=== PATIENT | female | born 1985 | race Caucasian/White ===

== ENCOUNTER 2016-11-21 13:15 | Inpatient (IN) | payer OTHER ==
[2016-11-21 15:08] LABS: BASOPHIL 0.3 % (0-2.0); EOSINOPHIL 0.7 % (0-4.5); MCH 29.4 pg (25.7-33.7); MCHC 33.7 g/dl (32.0-36.0); MEAN CELL VOLUME 87.4 fl (80-96); MEAN PLT VOLUME 8.8 fl (7.5-11.1); PLATELET COUNT 268 K/MM3 (134-434); RDW 13.7 % (11.6-15.6); WHITE BLOOD COUNT 14.3 K/mm3 (4.0-10.0)
[2016-11-21 15:26] LABS: URINE APPEARANCE CLOUDY; URINE BILIRUBIN NEGATIVE (NEGATIVE); URINE BLOOD NEGATIVE (NEGATIVE); URINE COLOR YELLOW; URINE GLUCOSE (UA) NEGATIVE (NEGATIVE); URINE KETONE NEGATIVE (NEGATIVE); URINE NITRITE NEGATIVE (NEGATIVE); URINE UROBILINOGEN NEGATIVE mg/dL (0.2-1.0)
[2016-11-21 15:29] LABS: URINE PROTEIN 1+ (NEGATIVE)
[2016-11-21 15:32] LABS: ALBUMIN 2.5 g/dl (3.4-5.0); ANION GAP 10 (8-16); CALCIUM 8.1 mg/dL (8.5-10.1); CO2 22 mmol/L (21-32); CREATININE 0.6 mg/dL (0.55-1.02); GLUCOSE,RANDOM 94 mg/dL (74-106); SGOT/AST 7 U/L (15-37); SGPT/ALT 14 U/L (12-78); URIC ACID 4.9 mg/dL (2.6-7.2)
[2016-11-21 15:35] LABS: ALK PHOS 214 U/L (45-117); BILIRUBIN,TOTAL 0.2 mg/dL (0.2-1.0); TOT PROT 6.3 g/dl (6.4-8.2)
[2016-11-21 16:01] VITALS: BMI 38.2
[2016-11-21 16:22] LABS: URINE BACTERIA MANY /hpf (NONE SEEN); URINE MUCUS RARE; URINE RBC 2 /hpf (0-3); URINE WBC 9 /hpf (3-5)
[2016-11-21] MEDS: DEXTROSE 5%-LACTATED RINGERS 1,000 ML IV SCH (18:00)
[2016-11-21 18:07] LABS: INR 0.93 (0.82-1.09); PROTHROMBIN TIME (PATIENT) 10.5 SEC (9.98-11.88)
[2016-11-21 18:10] LABS: ACTIVATED PTT 27.6 SECONDS (26.9-34.4)
[2016-11-21 21:12] LABS: URINE LEUK ESTERASE Negative (NEGATIVE)
[2016-11-21] MEDS ORDERED: DINOPROSTONE 10 MG VAGINAL SUPPOSITORY VG ONE (21:30)
--- NOTE | 2016-11-21 21:37 | HP ---
Past Medical History - Admission Chief Complaint: induced hypertension History of Present Illness: 31 yo @ 41+ weeks gestation, with induced hypertension admitted for induction of labor. History Source: Patient Limitations to Obtaining History: No Limitations - Past Medical History ...: 3 ...Para: 0 ...Term: 0 ...: 0 ...Spon : 2 ...Induced : 0 ...Multiple Gestation: 0 ...LMP: 02/07/16 ... Weeks Gestation by Dates: 41.1 ...EDC by Dates: 11/13/16 ...EDC by Sono: 11/19/16 - Past Surgical History Past Surgical History: Yes: None Hx Myomectomy: No Hx Transabdominal Cerclage: No - Smoking History Smoking history: Never smoked Have you smoked in the past 12 months: No - Alcohol/Substance Use Hx Alcohol Use: No History of Substance Use: reports: None - Social History History of Recent Travel: No Home Medications - Allergies Allergies/Adverse Reactions: Allergies Allergy/AdvReac Type Severity Reaction Status Date / Time No Known Allergies Allergy Verified 11/21/16 14:04 - Home Medications Home Medications: Ambulatory Orders One Daily Tablet 1 tab PO DAILY 11/21/16 Family Disease History - Family Disease History Family History: Unremarkable Review of Systems - Review of Systems Constitutional: reports: No Symptoms Eyes: reports: No Symptoms HENT: reports: No Symptoms Neck: reports: No Symptoms Cardiovascular: reports: No Symptoms Respiratory: reports: No Symptoms Gastrointestinal: reports: No Symptoms Genitourinary: reports: Pain Breasts: reports: No Symptoms Reported Musculoskeletal: reports: No Symptoms Integumentary: reports: No Symptoms Neurological: reports: No Symptoms Endocrine: reports: No Symptoms Hematology/Lymphatic: reports: No Symptoms Psychiatric: reports: No Symptoms Pain Intensity: 3 Physical Exam - Maternity Vital Signs: Vital Signs Temperature 97.9 F 11/21/16 18:00 Pulse Rate 87 11/21/16 20:00 Respiratory Rate 20 11/21/16 20:00 Blood Pressure 119/78 11/21/16 20:00 O2 Sat by Pulse Oximetry (%) Constitutional: Yes: Well Nourished Eyes: Yes: Conjunctiva Clear Neck: Yes: Supple Cardiovascular: Yes: Regular Rate and Rhythm Lungs: Clear to auscultation - Abdominal Exam/OB Number of Fetuses: Single Presentation: Vertex - Vaginal Exam/OB Presentation: Vertex/Position Station: -3 - Physical Exam ...Motor Strength: WNL Psychiatric: Yes: Alert, Oriented - Labs Lab Results: CBC, BMP 11/21/16 14:36 11/21/16 14:36 Problem List - Problems (1) PIH ( induced hypertension), antepartum Code(s): O13.9 - GESTATIONAL HTN W/O SIGNIFICANT PROTEINURIA, UNSP TRIMESTER Assessment/Plan induced hypertension Cervidil induction Re-evaluate in 12 hours or before if indicated
[2016-11-22] MEDS ORDERED: BUTORPHANOL TARTRATE 1 MG/ML VIAL IVPUSH PRN (03:11)
[2016-11-22] MEDS ORDERED: PROMETHAZINE HCL 25 MG/1 ML VIAL IVPUSH PRN (03:12)
[2016-11-22] MEDS ORDERED: BUTORPHANOL TARTRATE 1 MG/ML VIAL IVPB ONE (03:30)
[2016-11-22] MEDS ORDERED: PROMETHAZINE HCL 25 MG/1 ML VIAL IVPB ONE (03:30)
[2016-11-22] MEDS ORDERED: ELECTROLYTE-148 SOLN 1,000 ML IV SCH ×2 (07:30→08:31)
--- NOTE | 2016-11-22 08:43 | PN ---
Progress Note (short form) - Note Progress Note: cx 6 cm. 80 vx -2 mi, fhr cat 1, arom ,light mec stain, has epidural ,
[2016-11-22] MEDS ORDERED: FENTANYL/BUPIVACAINE/NS/PF - PCEA - 50 ML DISP.SYRIN EP SCH (08:45)
[2016-11-22] MEDS ORDERED: OXYTOCIN 15 UNITS/ LR 250 ML 250 ML IVPB SCH (09:30)
--- NOTE | 2016-11-22 09:35 | PN ---
Progress Note (short form) - Note Progress Note: contraction irregular , cx 6 cm, 80 vx -2 mr. light mec , heart accel with scalp stimulation , fhr cat 1, will start low dose pitocin and revaluate
--- NOTE | 2016-11-22 10:16 | PN ---
Progress Note (short form) - Note Progress Note: cx 7 cm 80 vx -2, fhr cat 2 with decreased variability , improved after scalp stimulation
--- NOTE | 2016-11-22 13:29 | PN ---
Progress Note (short form) - Note Progress Note: cx 9 cm 100 vx -1 mr, good accelration with scalp stimulation, fhr cat 1
[2016-11-22] MEDS ORDERED: GENTAMICIN 80 MG PREMIXED IVPB 100 ML IVPB ONE (16:30)
[2016-11-22] MEDS ORDERED: AMPICILLIN - 2 GM in SODIUM CHLORIDE 100 ML IVPB ONE (16:30)
[2016-11-22 17:02] LABS: ARTERIAL BLD GAS O2 SATURATION 78.5 % (90-98.9); ARTERIAL BLOOD GAS BASE EXCESS -5.6 meq/l (-2-2); ARTERIAL BLOOD GAS HCO3 18.4 meq/L (22-26); ARTERIAL BLOOD GAS PO2 39.3 mmHg (80-100); ARTERIAL BLOOD GAS pH 7.36 (7.35-7.45)
[2016-11-22 17:06] LABS: PT. ON O2? YES
[2016-11-22 17:07] LABS: TYPE OF O2 SIMPLE MASK
[2016-11-22 17:09] LABS: ON ANTICOAG? CORD BLOOD; PT'S TEMP ARETRIAL SAMPLE
[2016-11-22 17:11] LABS: VENOUS BLOOD GAS HCO3 18.9 meq/L (19-25); VENOUS PH 7.36 (7.32-7.42)
[2016-11-22] MEDS ORDERED: METHYLERGONOVINE MALEATE 0.2 MG/1 ML AMP IM PRN (17:57)
[2016-11-22] MEDS ORDERED: oxyCODONE HCL 5 MG TABLET PO PRN (17:57)
[2016-11-22] MEDS ORDERED: BISACODYL 10 MG SUPP.RECT RC PRN (17:57)
[2016-11-22] MEDS ORDERED: WITCH HAZEL 50% (TUCKS) 40 PAD/JAR PAD TP PRN (17:57)
[2016-11-22] MEDS ORDERED: BENZOCAINE 28 GM HEMORRHOIDAL OINTMENT TP PRN (17:57)
[2016-11-22] MEDS ORDERED: BENZOCAINE 20% 57 GM BOTTLE TP PRN (17:57)
[2016-11-22] MEDS ORDERED: D5W-LR W/ 20 UNITS OXYTOCIN 1,000 ML IV SCH (18:00)
--- NOTE | 2016-11-22 18:21 | PN ---
Progress Note (short form) - Note Progress Note: 220 pm cx 9 cm. . 100 vx -1. mr, fh cat 1 ,no tachycardia , temp most likly seconadry to dehydration and possible epidural anesthesia, doubt chorio, but will cover with antibiotics in case, GBS negative,
[2016-11-22] MEDS: FERROUS SO4 325 MG TABLET (FP) PO SCH (21:30)
[2016-11-22] MEDS: IBUPROFEN 600 MG TABLET (FP) PO PRN (22:20)
[2016-11-22] MEDS: ACETAMINOPHEN 325 MG TABLET (FP) PO PRN (22:20)
[2016-11-23] MEDS: DEXTROSE 5%-LACTATED RINGERS 1,000 ML IV SCH (06:12)
--- NOTE | 2016-11-23 08:13 | PN ---
Post Progress Note Type of Delivery: Vital Signs: Vital Signs Temperature 99.0 F 11/23/16 05:17 Pulse Rate 104 H 11/23/16 05:17 Respiratory Rate 20 11/23/16 05:17 Blood Pressure 128/85 11/23/16 05:17 O2 Sat by Pulse Oximetry (%) 100 11/22/16 16:15 Breast Exam: Yes: Soft Uterus: Yes: Fundus Firm Abdomen/GI: Yes: Abdomen soft Lochia: Yes: Rubra Lochia, amount: Small Extremities: Yes: Calves non-tender Perineum: Yes: Intact Activity: Ambulating - Labs Labs: CBC WBC 14.3 K/mm3 (4.0-10.0) H 11/21/16 14:36 RBC 4.17 M/mm3 (3.60-5.2) 11/21/16 14:36 Hgb 12.3 GM/dL (10.7-15.3) D 11/21/16 14:36 Hct 36.5 % (32.4-45.2) D 11/21/16 14:36 MCV 87.4 fl (80-96) 11/21/16 14:36 MCH 29.4 pg (25.7-33.7) 11/21/16 14:36 MCHC 33.7 g/dl (32.0-36.0) 11/21/16 14:36 RDW 13.7 % (11.6-15.6) 11/21/16 14:36 Plt Count 268 K/MM3 (134-434) D 11/21/16 14:36 MPV 8.8 fl (7.5-11.1) 11/21/16 14:36 Neutrophils % 80.0 % (42.8-82.8) D 11/21/16 14:36 Lymphocytes % 11.0 % (8-40) D 11/21/16 14:36 Monocytes % 8.0 % (3.8-10.2) 11/21/16 14:36 Eosinophils % 0.7 % (0-4.5) 11/21/16 14:36 Basophils % 0.3 % (0-2.0) 11/21/16 14:36 Retic Count 1.42 % (0.5-1.5) 11/21/16 14:36 Haptoglobin 159 mg/dL (34-200) 11/21/16 14:36 Assessment/Plan oob reg diet check cbc
[2016-11-23 08:14] LABS: BASOPHIL 0.1 % (0-2.0); MCH 29.5 pg (25.7-33.7); MCHC 33.9 g/dl (32.0-36.0); MEAN CELL VOLUME 87.2 fl (80-96); MEAN PLT VOLUME 8.5 fl (7.5-11.1); NEUTROPHILS 90.3 % (42.8-82.8); PLATELET COUNT 189 K/MM3 (134-434); RDW 13.8 % (11.6-15.6)
[2016-11-23] MEDS: ACETAMINOPHEN 325 MG TABLET (FP) PO PRN ×2 (08:44→18:01)
[2016-11-23] MEDS: IBUPROFEN 600 MG TABLET (FP) PO PRN ×2 (08:45→18:02)
[2016-11-23] MEDS ORDERED: DEXTROSE 5%-LACTATED RINGERS 1,000 ML IV SCH (08:45)
[2016-11-23] MEDS ORDERED: DIPHTH,PERTUSS(ACELL),TET 0.5 ML DISP.SYRIN IM ONE (10:00)
[2016-11-23] MEDS ORDERED: FLU VACC QS2017-18 36MOS UP/PF 60 MCG/0.5 ML SYRINGE IM ONE (10:00)
[2016-11-23] MEDS: PRENATAL VITAMINS W/ FOLIC ACID TABLET (FP) PO SCH (10:28)
[2016-11-23] MEDS: FERROUS SO4 325 MG TABLET (FP) PO SCH ×2 (10:28→21:40)
[2016-11-23] MEDS: GENTAMICIN 80 MG PREMIXED IVPB 100 ML IVPB SCH ×2 (11:20→18:43)
[2016-11-23] MEDS: CEFAZOLIN 1 GM/D5W 50 ML IVPB SCH ×2 (12:31→17:45)
[2016-11-23 20:44] LABS: URINE APPEARANCE SLCLOUDY; URINE BILIRUBIN NEGATIVE (NEGATIVE); URINE BLOOD 3+ (NEGATIVE); URINE COLOR YELLOW; URINE GLUCOSE (UA) NEGATIVE (NEGATIVE); URINE KETONE NEGATIVE (NEGATIVE); URINE NITRITE NEGATIVE (NEGATIVE); URINE UROBILINOGEN NEGATIVE mg/dL (0.2-1.0)
[2016-11-23 20:53] LABS: URINE PROTEIN 1+ (NEGATIVE)
[2016-11-23 21:15] LABS: URINE MUCUS RARE; URINE RBC 12 /hpf (0-3); URINE WBC 65 /hpf (3-5)
[2016-11-23] MEDS ORDERED: SENNOSIDES/DOCUSATE COMBO (SENNA PLUS) TABLET (UD) PO PRN (22:00)
[2016-11-23 22:48] LABS: URINE LEUK ESTERASE 3+ (NEGATIVE)
[2016-11-24] MEDS: CEFAZOLIN 1 GM/D5W 50 ML IVPB SCH ×4 (01:25→18:33)
[2016-11-24] MEDS: GENTAMICIN 80 MG PREMIXED IVPB 100 ML IVPB SCH ×3 (02:07→18:34)
[2016-11-24 08:56] LABS: BASOPHIL 0.4 % (0-2.0); EOSINOPHIL 0.3 % (0-4.5); MCH 29.2 pg (25.7-33.7); MCHC 33.7 g/dl (32.0-36.0); MEAN CELL VOLUME 86.6 fl (80-96); MEAN PLT VOLUME 8.4 fl (7.5-11.1); NEUTROPHILS 80.6 % (42.8-82.8); PLATELET COUNT 209 K/MM3 (134-434); RDW 14.1 % (11.6-15.6); WHITE BLOOD COUNT 11.4 K/mm3 (4.0-10.0)
[2016-11-24] MEDS: FERROUS SO4 325 MG TABLET (FP) PO SCH (09:01)
[2016-11-24] MEDS: PRENATAL VITAMINS W/ FOLIC ACID TABLET (FP) PO SCH (09:01)
[2016-11-24 09:06] LABS: ANION GAP 7 (8-16); CALCIUM 7.8 mg/dL (8.5-10.1); CO2 25 mmol/L (21-32); GLUCOSE,RANDOM 79 mg/dL (74-106)
[2016-11-24 09:09] LABS: ALK PHOS 162 U/L (45-117); BILIRUBIN,TOTAL 0.3 mg/dL (0.2-1.0); CREATININE 0.4 mg/dL (0.55-1.02); SGOT/AST 43 U/L (15-37); SGPT/ALT 30 U/L (12-78); TOT PROT 5.4 g/dl (6.4-8.2)
[2016-11-24 13:09] VITALS: BP 136/91; PULSE 94; TEMP 98.6
--- NOTE | 2016-11-24 16:55 | DS ---
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 Signs: Vital Signs Temperature 98.6 F 11/24/16 13:00 Pulse Rate 94 H 11/24/16 13:00 Respiratory Rate 20 11/24/16 13:00 Blood Pressure 136/91 11/24/16 13:00 O2 Sat by Pulse Oximetry (%) 97 11/23/16 11:26 Constitutional: Yes: Well Nourished, No Distress, Calm Eyes: Yes: WNL, Conjunctiva Clear, EOM Intact HENT: Yes: WNL, Atraumatic, Normocephalic Neck: Yes: WNL, Supple, Trachea Midline Cardiovascular: Yes: WNL, Regular Rate and Rhythm Respiratory: Yes: WNL, Regular, CTA Bilaterally Gastrointestinal: Yes: WNL ...Rectal Exam: Yes: WNL Renal/: Yes: WNL ....Post : Yes: Uterus firm, Uterus non-tender, Slight lochia rubra Breast(s): Yes: WNL Musculoskeletal: Yes: WNL Extremities: Yes: WNL Edema: No Integumentary: Yes: WNL Neurological: Yes: WNL, Alert, Oriented ...Motor Strength: WNL Psychiatric: Yes: WNL, Alert, Oriented Labs: CBC, BMP 11/24/16 07:45 11/24/16 07:45 Delivery - Delivery Vaginal Delivery: Spontaneous (cx fully dilated , head on perinium ,head delivered , nasopharynx suctioned, ant and post, shoulder with no difficulty, live baby , , second degree laceration repaired with 2.0 chromic . 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
--- NOTE | 2016-11-24 17:05 | PN ---
Progress Note (short form) - Note Progress Note: spiked fever post , c/o of body ache, no dysuria on antibiotics blood culture negative so far urine culture negative abdomen soft, no cva . uterus firm , non tender lochia mild no odor, \perinium clean , intact CBC, BMP 11/24/16 07:45 11/24/16 07:45 Last Vital Signs Temp Pulse Resp BP Pulse Ox 98.6 F 94 H 20 136/91 97 11/24/16 13:00 11/24/16 13:00 11/24/16 13:00 11/24/16 13:00 11/23/16 11:26 impression afebrile , wbc coming down, cont iv antibiotics,pending urine culture if afebrile d/c home in am on po augmentim
== END 2016-11-24 18:30 | disposition home or self-care (01) | DRG 560 ==
LOC: JDEL 13:15 → JLDR 15:15 → J3W 11-22 19:30
PROVIDERS: ADMIT Obstetrics & Gynecology; ATTEND Obstetrics & Gynecology
PROC: 10E0XZZ Delivery of Products of Conception, External Approach (ICD-10-PCS; principal; 2016-11-22)
PROC: 0W8NXZZ Division of Female Perineum, External Approach (ICD-10-PCS; 2016-11-22)
PROC: 0HQ9XZZ Repair Perineum Skin, External Approach (ICD-10-PCS; 2016-11-22)
DX: O13.3 Gestational [pregnancy-induced] hypertension without significant proteinuria, third trimester (principal); O70.0 First degree perineal laceration during delivery; Z3A.41 41 weeks gestation of pregnancy; Z37.0 Single live birth
CPT/HCPCS: 36415; 36600; 59409; 80053; 81003; 81015; 82803; 82977; 83010; 84550; 85025; 85044; 85610; 85730; 86593; 86850; 86900; 86901; 87040; 87086; 90686; 90715; G0008

== ENCOUNTER 2018-03-26 03:41 | Emergency (ER) | payer OTHER ==
--- NOTE | 2018-03-26 04:08 | PDOC ---
History of Present Illness - General Chief Complaint: Palpitations Stated Complaint: PALPATATIONS Time Seen by Provider: 03/26/18 04:08 Past History - Past Medical History Allergies/Adverse Reactions: Allergies Allergy/AdvReac Type Severity Reaction Status Date / Time No Known Allergies Allergy Verified 11/21/16 14:04 Home Medications: Ambulatory Orders One Daily Tablet 1 tab PO DAILY 11/21/16 Amox-Tr/K Cl [Augmentin - 875Mg Tablet] 1 tab PO BID #10 tablet 11/24/16 Ibuprofen [Motrin -] 600 mg PO QID #28 tablet 11/24/16 Asthma: No Cancer: No Cardiac Disorders: Yes (h/o tachycardia tx with metatoprolol) Diabetes: No HTN: Yes Seizures: No Thyroid Disease: No - Immunization History Immunization Up to Date: Yes - Suicide/Smoking/Psychosocial Hx Smoking History: Never smoked Have you smoked in the past 12 months: No Hx Alcohol Use: No Drug/Substance Use Hx: No Substance Use Type: Alcohol Hx Substance Use Treatment: No
[2018-03-26] MEDS ORDERED: ADENOSINE 6 MG/2 ML VIAL IVPUSH ONE ×2 (04:10→04:54)
[2018-03-26 04:17] VITALS: TEMP 98; BMI 35.2
[2018-03-26] MEDS ORDERED: SODIUM CHLORIDE 0.9% 500 ML INFUS.BAG IV ONE (04:54)
[2018-03-26 05:00] VITALS: BP 141/82; PULSE 105
[2018-03-26 05:24] LABS: BASO % 0.4 % (0-2.0); EOS % 1.8 % (0-4.5); HEMATOCRIT 42.5 % (32.4-45.2); HEMOGLOBIN 14.9 GM/dL (10.7-15.3); LYMPH % 27.3 % (8-40); MCH 30.4 pg (25.7-33.7); MCHC 34.9 g/dl (32.0-36.0); MEAN PLT VOLUME 8.2 fl (7.5-11.1); MONO % 7.1 % (3.8-10.2); NEUT % 63.4 % (42.8-82.8); PLATELET COUNT 369 K/MM3 (134-434); RBC 4.89 M/mm3 (3.60-5.2); RDW 14.3 % (11.6-15.6); WHITE BLOOD COUNT 13.7 K/mm3 (4.0-10.0)
--- NOTE | 2018-03-26 05:32 | PDOC ---
History of Present Illness - General Chief Complaint: Palpitations Stated Complaint: PALPITATIONS Time Seen by Provider: 03/26/18 04:08 History Source: Patient, Family Exam Limitations: No Limitations - History of Present Illness Timing/Duration: momentarily Severity: moderate Past History - Travel Traveled outside of the country in the last 30 days: No Close contact w/someone who was outside of country & ill: No - Past Medical History Allergies/Adverse Reactions: Allergies Allergy/AdvReac Type Severity Reaction Status Date / Time No Known Allergies Allergy Verified 03/26/18 04:40 Home Medications: Ambulatory Orders Metoprolol Tartrate 25 mg PO DAILY #30 tablet 03/26/18 Asthma: No Cancer: No Cardiac Disorders: Yes (h/o tachycardia tx with metatoprolol svt) COPD: No Diabetes: No HTN: Yes Seizures: No Thyroid Disease: No - Immunization History Immunization Up to Date: Yes - Suicide/Smoking/Psychosocial Hx Smoking History: Never smoked Have you smoked in the past 12 months: No Information on smoking cessation initiated: No Hx Alcohol Use: No Drug/Substance Use Hx: No Substance Use Type: Alcohol Hx Substance Use Treatment: No Review of Systems - Review of Systems Constitutional: No: Symptoms Reported, See HPI, Chills, Diaphoresis, Fever, Loss of Appetite, Malaise, Night Sweats, Weakness, Weight Stable, Unintentional Wgt. Loss, Unexplained wgt Loss, Other HEENTM: No: Symptoms Reported, See HPI, Eye Pain, Blurred Vision, Tearing, Recent change in vision, Double Vision, Cataracts, Ear Pain, Ocular Prothesis, Ear Discharge, Nose Pain, Nose Congestion, Tinnitus, Nose Bleeding, Hearing Loss , Throat Pain, Throat Swelling, Mouth Pain, Dental Problems, Difficulty Swallowing, Mouth Swelling, Other Respiratory: No: Symptoms reported, See HPI, Cough, Orthopnea, Shortness of Breath, SOB with Exertion, SOB at Rest, Stridor, Wheezing, Productive cough, Hemoptysis, Other Cardiac (ROS): No: Symptoms Reported, See HPI, Chest Pain, Edema, Irregular Heart Rate, Lightheadedness, Palpitations, Syncope, Chest Tightness, Other ABD/GI: No: Symptoms Reported, See HPI, Abdominal Distended, Abd. Pain w/ defecation, Blood Streaked Bowels, Constipated, Diarrhea, Difficulty Swallowing , Nausea, Poor Appetite, Poor Fluid Intake, Rectal Bleeding, Vomiting, Indigestion, Abdominal cramping, Tarry Stools, Other : No: Symptoms Reported, See HPI, Burning, Dysuria, Discharge, Frequency, Flank Pain, Hematuria, Incontinence, Pain, Urgency, Testicular Mass, Testicular Swelling, Lesions, Testicular Pain, Other Musculoskeletal: No: Symptoms Reported, See HPI, Back Pain, Gout, Joint Pain, Joint Swelling, Muscle Pain, Muscle Weakness, Neck Pain, Joint Stiffness, Other Integumentary: No: Symptoms Reported, See HPI, Bruising, Change in Color, Change in Hair/Nails, Dryness, Erythema, Flushing, Lesions, Lumps, Pallor, Pruritus, Rash, Sweating, Other Neurological: No: Symptoms reported, See HPI, Headache, Numbness, Paresthesia, Pre-Existing Deficit, Seizure, Tingling, Tremors, Weakness, Unsteady Gait, Ataxia, Dizziness, Other Psychiatric: No: Anxiety, Depression, Frequent Crying, Stressors, Sleep Pattern Change, Emotional Problems, Mood Swings, Change in Appetite, Other Endocrine: No: Symptoms Reported, See HPI, Excessive Sweating, Flushing, Intolerance to Cold, Intolerance to Heat, Increased Hunger, Increased Thirst, Increased Urine, Unexplained Weight Gain, Unexplained Weight Loss, Change in Weight, Other Hematologic/Lymphatic: No: Symptoms Reported, See HPI, Anemia, Blood Clots, Easy Bleeding, Easy Bruising, Bleeding Diathesis, Lymph Node Abnormalities, Swollen Glands, Other *Physical Exam - Vital Signs Last Vital Signs Temp Pulse Resp BP Pulse Ox 98.0 F 105 H 18 141/82 99 03/26/18 03:50 03/26/18 05:00 03/26/18 05:00 03/26/18 05:00 03/26/18 05:00 - Physical Exam General Appearance: Yes: Nourished, Appropriately Dressed, Mild Distress HEENT: positive: EOMI, ANNETTE, Normal ENT Inspection, Normal Voice, Symmetrical, TMs Normal, Pharynx Normal Neck: positive: Trachea midline, Normal Thyroid, Supple Respiratory/Chest: positive: Lungs Clear, Normal Breath Sounds, Respiratory Distress. negative: Chest Tender Cardiovascular: positive: Regular Rhythm, Regular Rate, S1, S2 Musculoskeletal: positive: Normal Inspection. negative: CVA Tenderness Extremity: positive: Normal Capillary Refill, Normal Inspection, Normal Range of Motion, Tender, Pelvis Stable Integumentary: positive: Normal Color, Dry, Warm Neurologic: positive: miniature set constructor II-XII NML intact, Fully Oriented, Alert, Normal Mood/ Affect, Normal Response, Motor Strength 5/5 Moderate Sedation - Procedure Monitoring Vital Signs: Procedure Monitoring Vital Signs Temperature 98.0 F 03/26/18 03:50 Pulse Rate 105 H 03/26/18 05:00 Respiratory Rate 18 03/26/18 05:00 Blood Pressure 141/82 03/26/18 05:00 O2 Sat by Pulse Oximetry (%) 99 03/26/18 05:00 ED Treatment Course - LABORATORY CBC & Chemistry Diagram: 03/26/18 04:40 03/26/18 04:41 - Medications Given in the ED: ED Medications Discontinued Medications Generic Name Dose Route Start Last Admin Trade Name Sage PRN Reason Stop Dose Admin Adenosine 6 mg 03/26/18 04:54 03/26/18 04:15 Adenocard - IVPUSH 03/26/18 04:55 6 mg ONCE ONE Administration Sodium Chloride 1,000 ml 03/26/18 04:54 03/26/18 04:15 Normal Saline - IV 03/26/18 04:55 1,000 ml ONCE ONE Administration Medical Decision Making - Medical Decision Making 03/26/18 05:51 WBC normal; chem pending 03/26/18 06:04 Pt came in SVT; suddenly woke up with a heart rate 03/26/18 07:34 HR is back to baseline. She will be discharged with metoprolol and cardio follow up as well as EP f/u *DC/Admit/Observation/Transfer Diagnosis at time of Disposition: SVT (supraventricular tachycardia) - Discharge Dispostion Disposition: HOME Condition at time of disposition: Improved Decision to Admit order: No - Prescriptions Prescriptions: Metoprolol Tartrate 25 mg PO DAILY #30 tablet - Referrals Referrals: Eduardo Levine MD [Staff Physician] - - Patient Instructions Printed Discharge Instructions: Paroxysmal Supraventricular Tachycardia - Post Discharge Activity
[2018-03-26 06:12] LABS: ALBUMIN 3.8 g/dl (3.4-5.0); ALK PHOS 117 U/L (45-117); ANION GAP 11 MMOL/L (8-16); BILIRUBIN,TOTAL 0.2 mg/dL (0.2-1); BLOOD UREA NITROGEN 13 mg/dL (7-18); CHLORIDE 107 mmol/L (98-107); CO2 21 mmol/L (21-32); CREATININE 0.7 mg/dL (0.55-1.3); GLUCOSE,RANDOM 122 mg/dL (74-106); POTASSIUM 3.9 mmol/L (3.5-5.1); SGOT/AST 17 U/L (15-37); SGPT/ALT 23 U/L (13-61); SODIUM 139 mmol/L (136-145); TOT PROT 7.5 g/dl (6.4-8.2)
[2018-03-26] MEDS ORDERED: metoPROLOL SUCCINATE 25 MG TAB.SR.24H (FP) PO ONE (06:29)
--- NOTE | 2018-03-26 10:28 | EKG ---
Test Reason : Blood Pressure : / mmHG Vent. Rate : 204 BPM Atrial Rate : 202 BPM P-R Int : 000 ms QRS Dur : 084 ms QT Int : 222 ms P-R-T Axes : 000 085 -18 degrees QTc Int : 409 ms SUPRAVENTRICULAR TACHYCARDIA MARKED ST ABNORMALITY, POSSIBLE INFERIOR SUBENDOCARDIAL INJURY ABNORMAL ECG WHEN COMPARED WITH ECG OF 28-DEC-2014 18:52, VENT. RATE HAS INCREASED NOTE RHYTHM CHANGE T WAVE INVERSION NOW EVIDENT IN INFERIOR LEADS Confirmed by DARREL SAVAGE MD ([id number]) on 03/26/2018 10:28:35 AM Referred By: Confirmed By:DARREL SAVAGE MD
--- NOTE | 2018-03-29 11:57 | EKG ---
Test Reason : Blood Pressure : / mmHG Vent. Rate : 103 BPM Atrial Rate : 103 BPM P-R Int : 136 ms QRS Dur : 074 ms QT Int : 314 ms P-R-T Axes : 058 083 044 degrees QTc Int : 411 ms SINUS TACHYCARDIA OTHERWISE NORMAL ECG WHEN COMPARED WITH ECG OF 26-MAR-2018 04:04, VENT. RATE HAS DECREASED BY 101 BPM T WAVE INVERSION NO LONGER EVIDENT IN INFERIOR LEADS Confirmed by MAYKEL FLORENCE, VALDEMAR ([id number]) on 03/29/2018 11:57:32 AM Referred By: Confirmed By:VALDEMAR BRAR MD
== END 2018-03-26 07:41 | disposition home or self-care (01) ==
LOC: JER 03:41
PROC: 3E033GC Introduction of Other Therapeutic Substance into Peripheral Vein, Percutaneous Approach (ICD-10-PCS; principal; 2018-03-26)
DX: I47.1 Supraventricular tachycardia (principal)
CPT/HCPCS: 36415; 80053; 82550; 84484; 84703; 85025; 93005; 93010; 96374; 99285-25

== ENCOUNTER 2018-07-04 13:33 | Inpatient (IN) | payer OTHER ==
[2018-07-04] MEDS ORDERED: SODIUM CHLORIDE 1,000 ML IV STA ×2 (13:40→16:45)
--- NOTE | 2018-07-04 13:40 | PDOC ---
Rapid Medical Evaluation Time Seen by Provider: 07/04/18 13:39 Medical Evaluation: Allergies Allergy/AdvReac Type Severity Reaction Status Date / Time No Known Allergies Allergy Verified 03/26/18 04:40 07/04/18 13:39 I have performed a brief in-person evaluation of this patient. The patient presents with a chief complaint of: right sided abdominal pain. LMP- 06/01 Pertinent physical exam findings: RLQ tenderness I have ordered the following: urine, labs The patient will proceed to the ED for further evaluation. Discharge Disposition - Diagnosis RLQ abdominal pain - Referrals - Patient Instructions - Post Discharge Activity
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
[2018-07-04 14:19] LABS: BASO % 0.2 % (0-2.0); EOS % 0.4 % (0-4.5); HEMATOCRIT 40.5 % (32.4-45.2); HEMOGLOBIN 13.7 GM/dL (10.7-15.3); LYMPH % 7.9 % (8-40); MCH 29.1 pg (25.7-33.7); MCHC 33.8 g/dl (32.0-36.0); MEAN CELL VOLUME 86.2 fl (80-96); MEAN PLT VOLUME 7.8 fl (7.5-11.1); MONO % 4.3 % (3.8-10.2); NEUT % 87.2 % (42.8-82.8); PLATELET COUNT 374 K/MM3 (134-434); RDW 13.7 % (11.6-15.6); WHITE BLOOD COUNT 16.9 K/mm3 (4.0-10.0)
[2018-07-04] MEDS ORDERED: ACETAMINOPHEN 1000 MG/100 ML VIAL (NON FORMULARY) IVPB ONE (14:24)
[2018-07-04 14:31] LABS: ALBUMIN 3.9 g/dl (3.4-5.0); BILIRUBIN,TOTAL 0.5 mg/dL (0.2-1); CALCIUM 8.6 mg/dL (8.5-10.1); CREATININE 0.6 mg/dL (0.55-1.3); TOT PROT 7.6 g/dl (6.4-8.2)
[2018-07-04] MEDS ORDERED: KETOROLAC TROMETHAMINE 30 MG/1 ML VIAL IVPUSH ONE (14:37)
[2018-07-04] MEDS ORDERED: ACETAMINOPHEN INJECTION 100 ML IVPB ONE (14:45)
[2018-07-04] MEDS ORDERED: KETOROLAC TROMETHAMINE 15 MG/ML VIAL ONE (14:46)
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
[2018-07-04] MEDS ORDERED: PIPERACILLIN/TAZOB 4.5 GM 4.5 GM in DEXTROSE 5%-WATER 100 ML IVPB ONE (16:45)
[2018-07-04] MEDS ORDERED: PIPERACILLIN/TAZOB 4.5 GM 4.5 GM/100 ML BAG IVPB ONE (17:00)
[2018-07-04 17:37] LABS: PROTHROMBIN TIME (PATIENT) 11.8 SEC (9.7-13.0)
[2018-07-04 17:40] LABS: ACTIVATED PTT 38.4 SECONDS (25.2-36.5)
[2018-07-04] MEDS ORDERED: IBUPROFEN 800 MG/8 ML IJ IVPB ONE ×2 (18:27→18:32)
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
[2018-07-04] MEDS ORDERED: ACETAMINOPHEN 325 MG TABLET (FP) PO PRN (21:00)
[2018-07-04] MEDS: LACTATED RINGERS SOLUTION 1,000 ML/1,000 ML INFUS.BAG IV SCH (21:48)
[2018-07-04] MEDS ORDERED: DEXTROSE 5%-WATER 100 ML IVPB ONE (23:52)
[2018-07-04] MEDS ORDERED: PIPERACILLIN/TAZOBACTAM 4.5 GM VIAL IVPB ONE (23:52)
[2018-07-05] MEDS ORDERED: IBUPROFEN 600 MG TABLET (FP) PO PRN
[2018-07-05] MEDS: PIPERACILLIN/TAZOB 4.5 GM 4.5 GM in DEXTROSE 5%-WATER 100 ML IVPB SCH ×2 (00:28→10:59)
[2018-07-05] MEDS ORDERED: ADENOSINE 6 MG/2 ML VIAL IVPUSH ONE ×2 (01:09→01:39)
[2018-07-05] MEDS ORDERED: METOPROLOL TARTRATE 25 MG TABLET (FP) PO ONE (01:34)
--- NOTE | 2018-07-05 01:37 | RAPID ---
Physical Examination Vital Signs: Vital Signs Temperature 97.7 F 07/05/18 00:37 Pulse Rate 98 H 07/05/18 00:37 Respiratory Rate 20 07/05/18 00:37 Blood Pressure 146/88 07/05/18 00:37 O2 Sat by Pulse Oximetry (%) 99 07/04/18 22:08 Findings/Remarks: Rapid response called for tachycardia. Patients pulse found to be 203. EKG showed SVT. Patient transferred to tele. Adenosine 6 pushed and heart rate remained elevated. 12 mg of adenosine pushed and heart rate fell below 100. Patient then felt better. Lopressor 2 mg po ordered once. Patient to remain on tele with cardiac monitoring. Repeat EKG normal sinus rhythm. Patient SVT began while she was getting second dose of abx. #SVT - patient has a history of, has not been taking metoprolol since April - restart lopressor 25 mg BID - consult Cardio - will call Dr. Cope service about overnight event repeat EKG normal sinus, trop < .02 Labs: CBC, BMP 07/04/18 21:30 07/04/18 14:04
[2018-07-05 07:46] VITALS: BMI 38.5
[2018-07-05 08:22] LABS: HEMOGLOBIN 12.9 GM/dL (10.7-15.3); MCH 29.8 pg (25.7-33.7); MCHC 33.9 g/dl (32.0-36.0); MEAN CELL VOLUME 87.8 fl (80-96); MEAN PLT VOLUME 7.9 fl (7.5-11.1); PLATELET COUNT 320 K/MM3 (134-434); RBC 4.33 M/mm3 (3.60-5.2); WHITE BLOOD COUNT 9.7 K/mm3 (4.0-10.0)
[2018-07-05 08:52] LABS: CALCIUM 8.5 mg/dL (8.5-10.1); CREATININE 0.6 mg/dL (0.55-1.3); POTASSIUM 3.8 mmol/L (3.5-5.1)
[2018-07-05] MEDS ORDERED: METOPROLOL TARTRATE 25 MG TABLET (FP) PO SCH (10:00)
[2018-07-05] MEDS ORDERED: DEXTROSE 5%-WATER 100 ML IVPB ONE (10:53)
[2018-07-05] MEDS ORDERED: PIPERACILLIN/TAZOBACTAM 4.5 GM VIAL IVPB ONE (10:53)
--- NOTE | 2018-07-05 12:19 | CON.CARD ---
Consult Consult Specialty:: Cardiology Referred by:: Prisca Reason for Consultation:: SVT - History of Present Illness Chief Complaint: RLQ pain History of Present Illness: She is a 33yo [place] F with h/o SVT diagnosed 5 years ago, last episode in 03/27 , HTN peripartum who was admitted with RLQ pain, found with appendicitis. Awaiting surgery. Had episode of SVT @ 180 BPM accompanied by palpitations last night broke with adenosine. She was not seen by a staff radiologist after last admission due to lack of insurance. No chest pain, orthopnea, pnd or edema. Exercise tolerance is without limits. - History Source History Provided By: Patient, Medical Record Limitations to Obtaining History: No Limitations - Past Medical History Cardio/Vascular: Yes: HTN (peripartum only ("with the , not the " per pt)), Other (SVT in Mar 2018 - broke in ER with adenosine, has not f/u with cardio) ...LMP Comment: currently spotting, IUD inserted last month ...: No - Past Surgical History Past Surgical History: Yes: None - Alcohol/Substance Use Hx Alcohol Use: Yes (occasional) History of Substance Use: reports: None - Smoking History Smoking history: Never smoked Have you smoked in the past 12 months: No - Social History ADL: Independent History of Recent Travel: No Home Medications - Allergies Allergies/Adverse Reactions: Allergies Allergy/AdvReac Type Severity Reaction Status Date / Time No Known Allergies Allergy Verified 07/04/18 17:20 - Home Medications Home Medications: Ambulatory Orders NK [No Known Home Medication] 07/04/18 Family Disease History - Family Disease History Family Disease History: Other: Father (healthy), Mother (asthma, HTN) Vital Signs: Vital Signs Temperature 98 F 07/05/18 06:00 Pulse Rate 91 H 07/05/18 06:00 Respiratory Rate 18 07/05/18 06:00 Blood Pressure 111/64 07/05/18 06:00 O2 Sat by Pulse Oximetry (%) 99 07/05/18 07:00 Constitutional: Yes: No Distress, Calm Eyes: Yes: Conjunctiva Clear, EOM Intact HENT: Yes: Normocephalic Neck: Yes: Trachea Midline Respiratory: Yes: Regular, CTA Bilaterally Gastrointestinal: Yes: Normal Bowel Sounds, Tenderness (RLQ) Cardiovascular: Yes: Regular Rate and Rhythm JVD: No Carotid Bruit: No PMI: Non-Displaced Heart Sounds: Yes: S1, S2 Musculoskeletal: Yes: WNL Extremities: Yes: WNL Edema: No Peripheral Pulses WNL: Yes - Other Data Labs, Other Data: CBC, BMP 07/05/18 07:45 07/05/18 07:45 INR, PTT INR 1.00 (0.83-1.09) 07/04/18 16:49 Troponin, BNP 07/05/18 01:50 Troponin I < 0.02 Troponin, BNP 07/05/18 01:50 Troponin I < 0.02 Imaging - Results Chest X-ray: Report Reviewed EKG: Report Reviewed Assessment/Plan She is a 33yo [place] F with h/o SVT diagnosed 5 years ago, last episode in 03/27 , HTN peripartum who was admitted with RLQ pain, found with appendicitis. Awaiting surgery. Had episode of SVT @ 180 BPM accompanied by palpitations last night broke with adenosine. She was not seen by a staff radiologist after last admission due to lack of insurance. No chest pain, orthopnea, pnd or edema. SVT--typical AVNRT pattern. --continue metoprolol, increase as tolerated. --needs outpatient fu for ablation when dcd. Preop evaluation --she is at low risk of perioperative cardiac events. No further testing is needed.
--- NOTE | 2018-07-05 12:53 | EKG ---
Test Reason : Blood Pressure : / mmHG Vent. Rate : 096 BPM Atrial Rate : 096 BPM P-R Int : 144 ms QRS Dur : 076 ms QT Int : 368 ms P-R-T Axes : 042 060 018 degrees QTc Int : 464 ms NORMAL SINUS RHYTHM NORMAL ECG WHEN COMPARED WITH ECG OF 04-JUL-2018 17:15, NO SIGNIFICANT CHANGE WAS FOUND Confirmed by VALDEMAR BRAR MD ([id number]) on 07/05/2018 12:53:33 PM Referred By: Confirmed By:VALDEMAR BRAR MD
--- NOTE | 2018-07-05 14:05 | PN ---
Progress Note (short form) - Note Progress Note: Overnight events noted. Pt had episode of SVT, broke with adenosine, transferred to telemetry, started on metoprolol. Has now been seen by cardiology, discussed with Dr. Reid. For lap appendectomy today. Will likely end up going home tomorrow. Will convert admission to full from satellite. MD Abby Problem List - Problems (1) Acute appendicitis with localized peritonitis, without perforation, abscess , or gangrene Code(s): K35.30 - ACUTE APPENDICITIS WITH LOC PERITONITIS, W/O PERF OR GANGR (2) RLQ abdominal pain Code(s): R10.31 - RIGHT LOWER QUADRANT PAIN (3) Anorexia Code(s): R63.0 - ANOREXIA (4) Nausea alone Code(s): R11.0 - NAUSEA (5) H/O paroxysmal supraventricular tachycardia Code(s): Z86.79 - PERSONAL HISTORY OF OTHER DISEASES OF THE CIRCULATORY SYSTEM
[2018-07-05] MEDS ORDERED: ONDANSETRON 4 MG/2 ML VIAL IVPUSH PRN ×2 (14:49→17:24)
[2018-07-05] MEDS ORDERED: PROMETHAZINE HCL 25 MG/1 ML VIAL IVPUSH PRN (14:49)
[2018-07-05] MEDS: LACTATED RINGERS SOLUTION 1,000 ML/1,000 ML INFUS.BAG IV SCH (14:50)
[2018-07-05] MEDS ORDERED: BUPIVACAINE HCL/PF 0.5% (5MG/ML) 10 ML VIAL ONE (14:52)
[2018-07-05] MEDS ORDERED: BENZOIN TINCTURE SWABSTICK TP ONE (14:53)
[2018-07-05] MEDS ORDERED: ACETAMINOPHEN INJECTION 100 ML IVPB ONE (14:53)
[2018-07-05] MEDS ORDERED: LACTATED RINGERS SOLUTION 1,000 ML IV SCH ×2 (15:00→17:24)
[2018-07-05] MEDS ORDERED: SEVOFLURANE 250 ML BTL ONE (15:00)
[2018-07-05] MEDS ORDERED: fentaNYL CITRATE 250 MCG/5 ML VIAL ONE (15:07)
[2018-07-05] MEDS ORDERED: PROPOFOL 20 ML ONE ×6 (15:07)
[2018-07-05] MEDS ORDERED: SUCCINYLCHOLINE CHLORIDE 200 MG/10 ML VIAL ONE (15:08)
[2018-07-05] MEDS ORDERED: ROCURONIUM BROMIDE 50 MG/5 ML VIAL ONE (15:08)
[2018-07-05] MEDS ORDERED: LIDOCAINE HCL/PF 2% SDV 5ML VIAL ONE (15:09)
[2018-07-05] MEDS ORDERED: METOPROLOL TARTRATE 5 MG/5 ML VIAL ONE (15:39)
[2018-07-05] MEDS ORDERED: DEXAMETHASONE SOD PHOSPHATE 4 MG/1 ML VIAL ONE (15:39)
[2018-07-05] MEDS ORDERED: GLYCOPYRROLATE 0.2 MG/1 ML VIAL ONE (16:02)
[2018-07-05] MEDS ORDERED: NEOSTIGMINE METHYLSULFATE 0.5 MG/ML - 10 ML MDV ONE (16:02)
[2018-07-05] MEDS ORDERED: BUPIVACAINE HCL/PF 0.5% (5MG/ML) 10 ML VIAL IJ ONE ×2 (16:40)
--- NOTE | 2018-07-05 16:49 | EKG ---
Test Reason : Blood Pressure : / mmHG Vent. Rate : 083 BPM Atrial Rate : 083 BPM P-R Int : 144 ms QRS Dur : 074 ms QT Int : 386 ms P-R-T Axes : 041 064 028 degrees QTc Int : 453 ms NORMAL SINUS RHYTHM NORMAL ECG WHEN COMPARED WITH ECG OF 05-JUL-2018 02:14, NO SIGNIFICANT CHANGE WAS FOUND Confirmed by VALDEMAR BRAR MD ([id number]) on 07/05/2018 4:48:52 PM Referred By: Confirmed By:VALDEMAR BRAR MD
[2018-07-05] MEDS ORDERED: IBUPROFEN 800 MG/8 ML IJ IVPB ONE ×2 (17:07→17:10)
--- NOTE | 2018-07-05 17:10 | OP ---
Operative Note - Note: Operative Date: 07/05/18 Pre-Operative Diagnosis: acute appendicitis Operation: laparoscopic appendectomy Findings: distally enlarged/inflamed appendix; enlarged, fibroid uterus with thin, tubular structure (adhesion vs salpinx?) extending off uterus adhesed into small bowel mesentery near terminal ileum, also adhesed somewhat to mesoappendix - carefully from the appendiceal fat before transection; right ovary and Fallopian tube identified separately and intact after that - original structure believed to be possible adhesion, but NOT salpinx. Post-Operative Diagnosis: Same as Pre-op Surgeon: Otto Cope Anesthesiologist/VISUAL MERCHANDISING ASSOCIATE: Greta Bermeo Anesthesia: General, Local (10ml 0.5% marcaine) Specimens Removed: appendix to pathology Estimated Blood Loss (mls): 5 Drains & Tubes with Location: Vitale out at case end Drains, Volume Out (mls): 175 (UOP) Fluid Volume Replaced (mls): 1,000 (crystalloid) Operative Report Dictated: Yes
[2018-07-05] MEDS ORDERED: ACETAMINOPHEN 325 MG TABLET (FP) PO SCH (21:00)
[2018-07-05] MEDS: METOPROLOL TARTRATE 25 MG TABLET (FP) PO SCH (21:46)
[2018-07-05] MEDS: SULFAMETHOXAZOLE/TRIMETHOPRIM 800MG/160MG D.S. TABLET PO SCH (21:46)
[2018-07-05] MEDS: ACETAMINOPHEN 325 MG TABLET (FP) PO SCH (21:46)
[2018-07-05] MEDS ORDERED: SULFAMETHOXAZOLE/TRIMETHOPRIM 800MG/160MG D.S. TABLET PO SCH (22:00)
[2018-07-06] MEDS ORDERED: IBUPROFEN 600 MG TABLET (FP) PO SCH
[2018-07-06] MEDS: IBUPROFEN 600 MG TABLET (FP) PO SCH ×3 (00:30→14:32)
[2018-07-06] MEDS: ACETAMINOPHEN 325 MG TABLET (FP) PO SCH ×3 (03:04→15:33)
--- NOTE | 2018-07-06 08:25 | PN ---
Progress Note (short form) - Note Progress Note: Post op day#1.S/P Laproscopic appendectomy under GA uneventful.Patient stable.No any anesthesia related problem.Patient Dc from the anesthesia care.
[2018-07-06] MEDS: SULFAMETHOXAZOLE/TRIMETHOPRIM 800MG/160MG D.S. TABLET PO SCH (10:41)
[2018-07-06] MEDS: METOPROLOL TARTRATE 25 MG TABLET (FP) PO SCH (10:41)
--- NOTE | 2018-07-06 14:05 | PN ---
Progress Note, Physician Chief Complaint: no complaints tele neg History of Present Illness: She is a 33yo [place] F with h/o SVT diagnosed 5 years ago, last episode in 03/27 , HTN peripartum who was admitted with RLQ pain, found with appendicitis. Awaiting surgery. Had episode of SVT @ 180 BPM accompanied by palpitations last night broke with adenosine. She was not seen by a line patrolman after last admission due to lack of insurance. No chest pain, orthopnea, pnd or edema. Exercise tolerance is without limits. - Current Medication List Current Medications: Active Medications Acetaminophen (Tylenol -) 650 mg PO Q6H [facility] Last Admin: 07/06/18 10:41 Dose: 650 mg Lactated Ringer's (Lactated Ringers Solution) 1,000 mls @ 125 mls/hr IV ASDIR [facility] Last Admin: 07/05/18 17:50 Dose: 85 mls Ibuprofen (Motrin -) 600 mg PO Q6H [facility] Last Admin: 07/06/18 06:25 Dose: 600 mg Metoprolol Tartrate (Lopressor -) 25 mg PO BID [facility] Last Admin: 07/06/18 10:41 Dose: 25 mg Ondansetron HCl (Zofran Injection) 4 mg IVPUSH Q6H PRN PRN Reason: NAUSEA AND/OR VOMITING Trimethoprim/Sulfamethoxazole (Bactrim Ds -) 1 each PO BID [facility] Stop: 07/08/18 21:59 Last Admin: 07/06/18 10:41 Dose: 1 each - Objective Vital Signs: Vital Signs Temperature 97.8 F 07/06/18 06:00 Pulse Rate 78 07/06/18 10:00 Respiratory Rate 18 07/06/18 10:00 Blood Pressure 133/92 07/06/18 10:00 O2 Sat by Pulse Oximetry (%) 98 07/05/18 21:00 Constitutional: Yes: No Distress, Calm Eyes: Yes: Conjunctiva Clear, EOM Intact HENT: Yes: Atraumatic, Normocephalic Neck: Yes: Supple, Trachea Midline Cardiovascular: Yes: Regular Rate and Rhythm Respiratory: Yes: CTA Bilaterally Gastrointestinal: Yes: Normal Bowel Sounds, Soft Extremities: Yes: WNL Edema: No Peripheral Pulses WNL: Yes Labs: CBC, BMP 07/05/18 07:45 07/05/18 07:45 INR, PTT INR 1.00 (0.83-1.09) 07/04/18 16:49 Assessment/Plan She is a 33yo [place] F with h/o SVT diagnosed 5 years ago, last episode in 03/27 , HTN peripartum who was admitted with RLQ pain, found with appendicitis. Awaiting surgery. Had episode of SVT @ 180 BPM accompanied by palpitations last night broke with adenosine. She was not seen by a line patrolman after last admission due to lack of insurance. No chest pain, orthopnea, pnd or edema. SVT--typical AVNRT pattern. --continue metoprolol 25 bid. --needs outpatient fu for ablation when dcd. --stable cardiac status. no need for telemetry.
--- NOTE | 2018-07-06 14:26 | DS ---
Physical Examination Vital Signs: Vital Signs Temperature 97.8 F 07/06/18 06:00 Pulse Rate 78 07/06/18 10:00 Respiratory Rate 18 07/06/18 10:00 Blood Pressure 133/92 07/06/18 10:00 O2 Sat by Pulse Oximetry (%) 98 07/05/18 21:00 Findings/Remarks: Pt s/p lap appy. Seen ambulating in room, examined in bed. Mother present. Pt relates having had initial symptoms of UTI at admission - urine cx was positive for E. coli, started Bactrim postop last night. She reports no further dysuria, and that urinary symptoms have resolved. Tolerated diet, voiding, pain managed with alternating tylenol and ibuprofen. + flatus, no BM yet. No N/V. No CP/ palpitations, no further episodes of SVT noted. Constitutional: Yes: Well Nourished, No Distress, Calm Eyes: Yes: Conjunctiva Clear, EOM Intact HENT: Yes: Atraumatic, Normocephalic Cardiovascular: Yes: Regular Rate and Rhythm. No: Bradycardia, Tachycardia Respiratory: Yes: Regular, CTA Bilaterally Gastrointestinal: Yes: Normal Bowel Sounds, Soft, Abdomen, Obese, Tenderness ( mostly incisional, umbilical > LLQ). No: Tenderness, Rebound Renal/: Yes: Menses Present. No: Incontinence Extremities: No: Cool, Cyanosis Integumentary: Yes: Incision (x3 dressed), Tattoos. No: Jaundice, Rash Wound/Incision: Yes: Steri Strips (under dressings), Dressing Dry and Intact (x3 ). No: Dressing Removed Neurological: Yes: Alert, Oriented Labs: no new labs Discharge Summary Reason For Visit: APPENDICITIS Current Active Problems Acute appendicitis with localized peritonitis, without perforation, abscess, or gangrene (Acute) Anorexia (Acute) Paroxysmal supraventricular tachycardia (Acute) Nausea alone (Acute) RLQ abdominal pain (Acute) Urinary tract infection (Acute) Procedures: Principal: laparoscopic appendectomy Hospital Course: 33yo obese [place]dein[place] F with h/o paroxysmal supraventricular tachycardia (dx 5y ago , last episode 03/27), peripartum HTN, uterine fibroids, recent IUD placement, presented to ER with RLQ pain associated with anorexia and nausea but no vomiting. Initial wbc was 16.9, and CT showed acute appendicitis without abscess or rupture. Urine culture ultimately grew sensitive E. coli as well. TV US also showed known uterine fibroids, as did CT. She was started on IV fluids and Zosyn, admitted to surgery, and was to have laparoscopic appendectomy the next morning, but overnight had an episode of SVT requiring adenosine and transfer to telemetry. She had been on metoprolol (25mg XL daily) for a month after an ER visit with the same in March, but had been unable to f/u with cardiology for lack of insurance, and has no PMD. She was restarted on metoprolol, converted to sinus rhythm with the adenosine, and Dr. Reid from cardiology saw her preoperatively, which was delayed to afternoon. She had no further episodes of SVT during her stay. Surgery was uneventful, and postoperatively, Zosyn was stopped, and she was put on Bactrim for the UTI. She will complete a 3-day course by Rx on discharge. Metoprolol tartrate 25mg bid was continued. She has tolerated diet, is ambulating, voiding, and pain is controlled with alternating nonnarcotics. She will be discharged home with lifting restrictions for a month, and prescriptions for 2d of Bactrim and 1m of Metoprolol. She is referred to the [facility] for primary care, and to continue her metoprolol prescriptions (within 1-2 weeks), until her insurance status allows her to follow up with a obstetrician gynecologist. She would benefit from ablation in the future per cardiology. She will f/u with surgery in 2 weeks. Condition: Good - Instructions Diet, Activity, Other Instructions: Postoperative instructions: You had a laparoscopic appendectomy on 07/05/[address] Otto Cope of [facility]. Activity: Resume your usual activities gradually, but no heavy exertion or lifting more than 10-15 pounds for 1 month. Remove dressings 48 hours after surgery; sticky tapes underneath will fall off by themselves. You may shower daily starting then, just pat the incision areas dry. No bath or swimming until skin incisions have healed. Eat lightly at first, but advance to your usual diet as tolerated. Pain: For pain, you may use and alternate Tylenol (acetaminophen) 1-2 pills and/ or ibuprofen 200 mg (1-3 pills) every 6 hours each as needed; this means that you can take one OR the other at 3-hour intervals. Do not take more than 4000mg of acetaminophen in a day. Take medications as prescribed or indicated on the labeling. Follow-up: Call Dr. Cope's office at [phone] to make your postop appointment (Monday in approximately 2 weeks after surgery). Clinic is held in the [facility] on the first floor of [facility]. Call the office if you have: * increasing pain not responsive to pain medication * fever of 101F or higher * vomiting * unusual or increasing bleeding or drainage from wounds * increasing redness or swelling at wound sites Also, call for an appointment with the primary medical doctor/clinic you have been referred to within 1-2 weeks (Dr. Hope/[facility]). You were also diagnosed with a urinary tract infection on admission. Take all of the antibiotics (Bactrim) prescribed until they are gone. Yogurt or a probiotic daily are advised while you are using antibiotics to help maintain healthy gut braeden. You also have an abnormal heart rhythm that comes and goes called SVT. You have been prescribed Metoprolol tartrate 25mg twice daily for this. Take it regularly , and about 12 hours apart if possible. You will need to have it renewed every month from the medical clinic, until you can see a obstetrician gynecologist. Dr. Reid saw you in the hospital. You may not be able to get an appointment with a heart doctor until you have insurance. Go to the Emergency Room if you have: racing heart rate, palpitations, chest pain, significant weakness and/or dizziness, difficulty breathing or fainting. Referrals: Raul Reid MD [Staff Physician] - Jose Hope MD [Staff Physician] - (call for appointment within 1-2 weeks) Otto Cope MD [Staff Physician] - 2 Weeks (CALL for appointment) Disposition: HOME - Home Medications Comprehensive Discharge Medication List: Ambulatory Orders Acetaminophen [Tylenol .Regular Strength -] 650 mg PO Q6H tablet 07/06/18 Ibuprofen [Motrin -] 600 mg PO Q6H tablet 07/06/18 Metoprolol Tartrate [Lopressor -] 25 mg PO BID #60 tablet 07/06/18 Sulfamethoxazole/Trimethoprim [Bactrim DS -] 1 each PO BID #4 tablet 07/06/18
[2018-07-06 18:28] VITALS: BP 112/58; PULSE 77; TEMP 98.6
--- NOTE | 2018-07-07 09:58 | OP ---
DATE OF OPERATION: 07/05/2018 PREOPERATIVE DIAGNOSIS: Acute appendicitis. POSTOPERATIVE DIAGNOSIS: Acute appendicitis. PROCEDURE PERFORMED: Laparoscopic appendectomy. SURGEON: Otto Cope M.D. ANESTHESIA: General endotracheal and local, 10 mL of 0.5% Marcaine. ESTIMATED BLOOD LOSS: 5 mL. FLUIDS: 1000 mL of crystalloid. URINE OUTPUT: 175 mL. SPECIMEN: Appendix to Pathology. FINDINGS: Distally enlarged/inflamed appendix. Enlarged fibroid uterus with a thin tubular structure extending off of it, adherent to the mesoappendix and terminal ileal mesentery. This was carefully from the appendiceal fat before transection. The right ovary and fallopian tube were separately identified intact after that. The structure may have been an adhesion but was not the tube. DISPOSITION: Stable and extubated to PACU. INDICATIONS FOR PROCEDURE: The patient is a 33-year-old [facility] female with a history of paroxysmal supraventricular tachycardia, hypertension only around the time of her delivery of her last child and known uterine fibroids, who presented to the emergency room with right lower quadrant pain that began early in the morning and in retrospect was preceded by some periumbilical discomfort. This was associated with some anorexia, nausea but no vomiting, and about 2 weeks' worth of diarrhea preceding the pain. In the emergency room, she was afebrile, with a white count of 16,[address] , [address] CT showed acute appendicitis without perforation or abscess. Transvaginal ultrasound and CT also confirmed her uterine fibroids and an IUD in place, which was apparently inserted just a month prior. She is currently having menstrual spotting. She was tender in the right lower quadrant. She was admitted to Surgery and started on IV fluids and antibiotics. The risks, benefits and alternatives of laparoscopic, possible open appendectomy, including but not limited to bleeding, infection, injury to adjacent structures, intestinal leak or injury, intra-abdominal abscess, incisional hernia, need for further procedures, and were discussed with the patient, as well as alternatives, including antibiotics with deferred or no surgery. Risks of that included failure of nonoperative therapy, perforation, sepsis, recurrence and . The patient desired to proceed with an operation, and informed consent was signed for the same. Initially surgery was scheduled for first thing this morning, but overnight she had an episode of supraventricular tachycardia, which required adenosine administration, with conversion to sinus rhythm. She was transferred to Telemetry, and Cardiology did see her this morning, was able to stratify her risk as low for perioperative cardiac events, with no further intervention or testing required prior to surgery. She is now brought to the OR for this procedure. She was also started on metoprolol earlier this morning. OPERATIVE TECHNIQUE: The patient was brought to the operating room and laid supine on the operating table. Sequential compression devices were applied to bilateral lower extremities. As her 3rd dose of Zosyn had been given just a couple of hours prior and was at steady state, no additional antibiotics were given in the operating room. After induction and intubation by Anesthesia, a Vitale catheter was placed in the patient's bladder, which was removed at the end of the case. Her lower abdomen was prepped and draped in sterile fashion. A small supraumbilical incision was marked just above the patient's previous supraumbilical piercing site, as there was very little room in the lower abdomen from infraumbilical to pubic bone, so a supraumbilical midline incision was made above the level of the piercing site with a scalpel and carried into the subcutaneous tissues with electrocautery, until the abdominal wall fascia was identified, scored and elevated with Henry clamps. The peritoneum was entered bluntly with the tip of a clamp, and a fingertip was inserted to ensure entry into the abdominal cavity and the absence of any underlying adhesions. A stay suture of 0 Vicryl was placed in [id number] fashion in the fascia for later closure, and a Lula trocar was introduced directly into the abdominal cavity and secured in place with the balloon. The abdomen was insufflated with carbon dioxide, and the patient was placed in Trendelenburg position with the right side planed somewhat upward. Two additional 5-mm ports were placed under direct vision in the left lower quadrant and suprapubic areas, and the camera switched to the left lower quadrant port. Graspers were used through the other 2 ports and used to gently manipulate the small bowel medially and away from the pelvis and the right lower quadrant. The fibroid uterus was evident in the pelvis, coming up from it. The pelvis was inspected first to see if we could identify any fluid underneath the uterus deep in the pelvis. The uterus was gently elevated over a grasper. Just a small bit of slightly bloody fluid was noted in the pelvis, likely related to the patient's current menstruation. No yellow or purulent fluid was noted. At this time also a small tubular fibrous-looking structure was seen coming off of the uterus at the upper right aspect, extending into the mesenteric fat of the terminal ileum, as well as the fat of the mesoappendix. It was unclear what this represented at first. A [place] dissector was used to carefully and bluntly begin this structure from the mesoappendix and the fat. The appendix itself was identified by following the tenia of the cecum down to where it ended, and the base of the appendix was then grasped and elevated. It was actually the distal aspect of the appendix that appeared to be enlarged and inflamed, and most of the distal aspect of the appendix was free of mesoappendix. The base of the appendix was then elevated, and a [place] dissector used to create a window in the mesentery at its base where it joined the cecum, such that a 45 purple load of the Endo HOME stapler could be introduced to transect the base of the appendix at the cecal junction. The appendix itself was then held up, and the [place] dissector again carefully used to begin the structure coming off of the uterus from the fat there, teasing it down so that it remained with the small bowel mesentery but not with the appendix. A call was placed to [employer] environmental remediation consultant, Dr. Talavera, during surgery, just to ask whether there was anyone from [employer] available to take a look at the structure while we were in the room, but there was no one in-house. So, as the careful dissection continued, and it became clear that we could leave the tip of that structure down with the small bowel mesentery, and completely separate it from where the mesoappendix was going to be transected, the right ovary and fallopian tube were also then discovered further over in the right pelvis to be completely separate and intact from the structure coming off the uterus. Thus, reassured that this was not in fact the salpinx, a white load of the HOME stapler was used to transect the mesoappendix just under the appendix itself and complete the transection of the appendix. The appendix was then set aside momentarily. The suction chemical equipment repairer was used to suction some bloody fluid from the operative site. The staple lines were carefully inspected for hemostasis. A couple of squirts of saline were used to clarify that there was, in fact, no active bleeding and were immediately suctioned back up. The appendix itself was then placed in an Endo Catch bag and retrieved out the umbilical port site within the Lula trocar. Immediately prior to retrieving the appendix itself, the suprapubic port was removed under direct vision. The Lula and appendix in the bag were removed en bloc under direct vision. Then the camera and left lower quadrant port were withdrawn as well. The abdomen was exsufflated of carbon dioxide. The patient was returned to the neutral position. The stay suture at the supraumbilical incision was tied to close the fascia there. Hemostasis was achieved in the port sites with electrocautery where necessary. Local anesthetic was then infiltrated into all 3 port sites. The skin was closed with 4-0 Vicryl subcuticular sutures, including a running at the Lula incision. Benzoin and Steri-Strips were applied to each incision, and dressings of gauze and Tegaderm placed over these. The Vitale catheter was then also removed from the patient's bladder at the end of the case. Counts were correct at the end of the procedure. The patient was then awakened and extubated by Anesthesia, moved back to a stretcher and taken to the recovery room in stable condition, having tolerated the procedure well. Jose G [id number] MTDD
--- NOTE | 2018-07-09 17:59 | PATH ---
Surgical Pathology Report Patient Name: CHRIS MARTINEZ [facility]. Rec. #: [id number] /Age/Gender: 1985 (Age: 33) / F Account: [id number] Location: 4 W TELEMETRY U Taken: 07/05/2018 Received: 07/06/2018 Reported: 07/09/2018 Physicians: Otto Cope M.D. Specimen(s) Received APPENDIX Clinical History Acute appendicitis Final Diagnosis APPENDIX, LAPAROSCOPIC APPENDECTOMY: ACUTE APPENDICITIS AND PERIAPPENDICITIS. Electronically Signed Sydni Simeon M.D. Gross Description Received in formalin, labeled "appendix," is a 7 cm. in length vermiform appendix with a stapled margin of resection and moderate attached fat. The serosa is cohn-mead and smooth. Sectioning reveals a focally dilated, hemorrhagic lumen. The wall of the appendix averages 0.1 cm. in thickness. Street Roller Engineer sections are submitted in one cassette. /07/06/2018 saudi07/06/2018
== END 2018-07-06 18:27 | disposition home or self-care (01) | DRG 225 ==
LOC: JER 13:33 → JASUSAT 17:07 → J6S 21:18 → J4W 07-05 01:28 → JASUSAT 07-05 06:59
PROVIDERS: ADMIT Surgery; ATTEND Surgery
PROC: 0DTJ4ZZ Resection of Appendix, Percutaneous Endoscopic Approach (ICD-10-PCS; principal; 2018-07-05 15:00)
DX: K35.30 Acute appendicitis with localized peritonitis, without perforation or gangrene (principal); I47.1 Supraventricular tachycardia; D25.9 Leiomyoma of uterus, unspecified; N39.0 Urinary tract infection, site not specified; B96.20 Unspecified Escherichia coli [E. coli] as the cause of diseases classified elsewhere; E66.9 Obesity, unspecified; Z68.38 Body mass index [BMI] 38.0-38.9, adult; R63.0 Anorexia; R11.0 Nausea; I10 Essential (primary) hypertension; R10.31 Right lower quadrant pain; Z86.79 Personal history of other diseases of the circulatory system
CPT/HCPCS: 36415; 71046-TC-FY; 74177-TC; 76830-TC; 80048; 80053; 82550; 83690; 84484; 84703; 85025; 85027; 85610; 85730; 86850; 86900; 86901; 87086; 87186; 88304-TC; 93005; 93010; 94760; 99285-25; J0131; J7030